=== PATIENT | female | born 1995 | race Caucasian/White ===

== ENCOUNTER 2024-08-09 01:37 | Inpatient (IN) | payer BC ==
[2024-08-09] MEDS: Misoprostol 25 MCG (1/4 of 100 MCG) Tab ONE (07:51)
[2024-08-09] MEDS ORDERED: Ondansetron 4 MG/2 ML SDV IVPUSH PRN (07:53)
[2024-08-09] MEDS ORDERED: Misoprostol 25 MCG (1/4 of 100 MCG) Tab VAG PRN (07:53)
[2024-08-09] MEDS ORDERED: Sodium Chloride 0.9% 10 ML Syringe FLUSH PRN (07:53)
[2024-08-09] MEDS ORDERED: Lidocaine 1% 50 ML MDV INJECT PRN (07:53)
[2024-08-09] MEDS ORDERED: Oxytocin/0.9 % Sodium Chloride 30 UNIT/500 ML BAG IV SCH (08:00)
[2024-08-09 08:21] LABS: BASOPHILS PERCENT AUTO 0.2 % (0.0-1.0); EOSINOPHILS ABSOLUTE AUTO 0.1 K/mm3 (0.0-0.4); HEMATOCRIT 38.4 % (37.0-47.0); HEMOGLOBIN 12.6 gm/dl (12.0-16.0); IMMATURE GRAN ABSOLUTE AUTO 0.13 K/mm3 (0.00-0.05); LYMPHOCYTES ABSOLUTE AUTO 1.6 K/mm3 (1.0-4.8); LYMPHOCYTES PERCENT AUTO 12.4 % (24.0-44.0); MEAN CORPUSCULAR HEMOGLOBIN 28.2 pg (28.0-32.0); MEAN CORPUSCULAR HGB CONC 32.8 g/dl (32.0-36.0); MEAN CORPUSCULAR VOLUME 85.9 fl (83.0-99.0); MEAN PLATELET VOLUME 10.3 fl (9.4-12.3); MONOCYTES ABSOLUTE AUTO 0.6 K/mm3 (0.0-0.8); MONOCYTES PERCENT AUTO 5.1 % (0.0-8.0); NEUTROPHILS PERCENT AUTO 80.3 % (41.0-71.0); PLATELET COUNT,PLT 294 K/mm3 (150-400); RED BLOOD CELL COUNT 4.47 M/mm3 (4.10-5.30); WHITE BLOOD CELL COUNT,WBC 12.48 K/mm3 (3.9-11.3)
[2024-08-09] MEDS: Ampicillin 2 GM in Sodium Chloride 0.9% 100 ML IV ONE (10:01)
[2024-08-09] MEDS: Oxytocin/0.9 % Sodium Chloride 30 UNIT/500 ML BAG IV SCH (12:00)
[2024-08-09] MEDS: Lactated Ringers 1,000 ML IV SCH (12:00)
[2024-08-09] MEDS ORDERED: Metoclopramide 10 MG/2 ML SDV IVPUSH ONE (13:59)
[2024-08-09] MEDS ORDERED: Lactated Ringers 1,000 ML IV SCH (14:00)
[2024-08-09] MEDS: Ampicillin 1 GM in Sodium Chloride 0.9% 100 ML IV SCH (14:14)
[2024-08-09] MEDS: Nalbuphine 10 MG/1 ML Vial IVPUSH PRN (15:58)
[2024-08-09] MEDS: Sodium Chloride 0.9% 10 ML Syringe FLUSH SCH (19:28)
[2024-08-09] MEDS: Citric Acid/Sodium Citrate Solution 30 ML Cup PO ONE (19:29)
[2024-08-09] MEDS ORDERED: diphenhydrAMINE 50 MG/ML SDV IVPUSH PRN (21:48)
[2024-08-09] MEDS ORDERED: fentaNYL 100 MCG/2 ML SDV EPIDUR PRN (21:48)
[2024-08-09] MEDS: Bupivacaine/fentaNYL/NS 100 ML Bag EPIDUR PRN (22:02)
[2024-08-09] MEDS: ePHEDrine 50 MG/ML SDV IVPUSH PRN (22:41)
[2024-08-10] MEDS ORDERED: Bupivacaine 0.25% 10 ML SDV ONE
[2024-08-10] MEDS ORDERED: Lidocaine 2% with EPINEPHrine 1:200,000 20 ML SDV ONE (00:49)
[2024-08-10] MEDS ORDERED: Ondansetron 4 MG/2 ML SDV ONE (00:52)
[2024-08-10] MEDS ORDERED: Metoclopramide 10 MG/2 ML SDV ONE (00:52)
[2024-08-10] MEDS: Azithromycin 500 MG in Sodium Chloride 0.9% 250 ML IV ONE ×2 (01:06→04:15)
[2024-08-10] MEDS: Citric Acid/Sodium Citrate Solution 30 ML Cup PO ONE (01:07)
[2024-08-10] MEDS: Metoclopramide 10 MG/2 ML SDV IVPUSH ONE (01:07)
[2024-08-10] MEDS ORDERED: ceFAZolin 2 GM Vial ONE (01:17)
[2024-08-10] MEDS ORDERED: Morphine PF 10 MG/10 ML SDV ONE (01:22)
[2024-08-10] MEDS ORDERED: Lactated Ringers 1,000 ML IV ONE (02:15)
[2024-08-10] MEDS ORDERED: diphenhydrAMINE 50 MG/ML SDV IVPUSH PRN ×2 (02:19→04:10)
[2024-08-10] MEDS ORDERED: fentaNYL 100 MCG/2 ML SDV IVPUSH PRN (02:19)
[2024-08-10] MEDS ORDERED: Phenylephrine 1% 10 MG/ML SDV ONE (02:28)
[2024-08-10] MEDS ORDERED: Oxytocin 10 Units/1 ML SDV ONE (02:28)
[2024-08-10] MEDS: Meperidine 50 MG/ML Vial IVPUSH PRN (02:58)
[2024-08-10] MEDS ORDERED: Ondansetron 4 MG/2 ML SDV IV PRN (04:10)
[2024-08-10] MEDS ORDERED: Sodium Chloride 0.9% 10 ML Syringe FLUSH PRN (04:10)
[2024-08-10] MEDS ORDERED: Naloxone 0.4 MG/ML SDV IVPUSH PRN (04:10)
[2024-08-10] MEDS ORDERED: ePHEDrine 50 MG/ML SDV IVPUSH PRN (04:10)
[2024-08-10] MEDS ORDERED: oxyCODONE 5 MG Tab PO PRN (04:10)
[2024-08-10] MEDS: Citric Acid/Sodium Citrate Solution 30 ML Cup ONE (04:14)
[2024-08-10] MEDS: ceFAZolin 2 GM in Sodium Chloride 0.9% 50 ML IV ONE (04:15)
[2024-08-10] MEDS: Dextrose 5%-Lactated Ringers 1,000 ML IV SCH (04:22)
[2024-08-10] MEDS: Ketorolac 30 MG/ML SDV IVPUSH SCH (04:42)
[2024-08-10] MEDS: Docusate Sodium 100 MG Cap PO PRN (22:13)
[2024-08-10] MEDS: Ibuprofen 600 MG Tab PO SCH (22:13)
[2024-08-11 06:00] LABS: HEMATOCRIT 32.7 % (37.0-47.0); MEAN CORPUSCULAR HEMOGLOBIN 28.2 pg (28.0-32.0); MEAN CORPUSCULAR HGB CONC 31.8 g/dl (32.0-36.0); MEAN CORPUSCULAR VOLUME 88.6 fl (83.0-99.0); MEAN PLATELET VOLUME 10.2 fl (9.4-12.3); PLATELET COUNT,PLT 260 K/mm3 (150-400); RED BLOOD CELL COUNT 3.69 M/mm3 (4.10-5.30); WHITE BLOOD CELL COUNT,WBC 11.88 K/mm3 (3.9-11.3)
[2024-08-11 06:01] LABS: HEMOGLOBIN 10.4 gm/dl (12.0-16.0)
[2024-08-11] MEDS: Acetaminophen 325 MG Tab PO PRN (16:19)
== END 2024-08-12 12:50 | disposition home or self-care (01) | DRG 540 ==
LOC: JD.OB 01:37 → OBSVTOIN 08-10 01:37 → JD.OB 08-10 01:38
PROVIDERS: ADMIT Obstetrics & Gynecology; ATTEND Obstetrics & Gynecology
PROC: 10D00Z1 Extraction of Products of Conception, Low, Open Approach (ICD-10-PCS; principal; 2024-08-10 01:10)
DX: O48.0 Post-term pregnancy (principal); Z37.0 Single live birth; O63.0 Prolonged first stage (of labor); O34.211 Maternal care for low transverse scar from previous cesarean delivery; O99.214 Obesity complicating childbirth; O99.824 Streptococcus B carrier state complicating childbirth; O76 Abnormality in fetal heart rate and rhythm complicating labor and delivery; Z3A.40 40 weeks gestation of pregnancy
CPT/HCPCS: 01967; 01968; 36415; 51702; 59025; 85025; 85027; 86592; 86850; 86900; 86901; A9270-GY; C1726; J0290; J0456; J0665; J0690; J1885; J2175; J2274; J2300; J2371; J2405; J2590; J2765; J3490; J7120; J7121; J7999